=== PATIENT | female | born 1965 | race Caucasian/White ===

== ENCOUNTER → 2016-12-25 | Outpatient (CLI) | payer SELFPAY | LOC: OD 15:06 | PROVIDERS: ATTEND Internal Medicine | DX: R20.0 Anesthesia of skin (principal) | CPT/HCPCS: 36415; 82607; 83036 ==

== ENCOUNTER 2018-05-21 08:40 | Emergency (ER) | payer SELFPAY ==
--- NOTE | 2018-05-21 10:01 | ER Document Report ---
ED ENT - General Mode of Arrival: Ambulatory Information source: Patient TRAVEL OUTSIDE OF THE [place] IN LAST 30 DAYS: No - General Chief Complaint: Nose Bleed Stated Complaint: NOSE BLEED Time Seen by Provider: 05/21/18 09:53 Notes: 52-year-old female who presents to the emergency department today with complaints of a nosebleed that began at 0730 this morning. EMS administered afrin nose spray and using that along with pressure, they were able to control the bleeding for a brief time. Patient states she does not take blood thinners routinely however she did take 2 full strength aspirin within the last 24 hours. Patient states she used to be on hypertensive medications however she stopped taking them about a year ago. Patient denies any trauma to the nose. ( MARISOL CADENA) - Related Data Allergies/Adverse Reactions: nickel Allergy (Severe, Verified 08/07/16 09:46) RASH amoxicillin [Amoxicillin] Allergy (Verified 08/01/16 10:14) Hives, Wheezing meperidine HCl [From Demerol] Allergy (Verified 08/01/16 10:14) Hives Penicillins Allergy (Verified 08/01/16 10:14) Hives, Wheezing Sulfa (Sulfonamide Antibiotics) Allergy (Verified 08/01/16 10:14) Hives theophylline [Theophylline] Allergy (Verified 08/01/16 10:14) "raised BP really high, heart pounding" ibuprofen [From Motrin] Adverse Reaction (Verified 08/01/16 10:14) upset stomach Latex Allergy (Uncoded 08/01/16 10:14) Shortness of Breath Past Medical History - General Information source: Patient - Social History Smoking Status: Never Smoker Cigarette use (# per day): No Frequency of alcohol use: None Drug Abuse: None Lives with: Family Family History: Reviewed & Not Pertinent Patient has suicidal ideation: No Patient has homicidal ideation: No - Past Medical History Cardiac Medical History: Reports: Hx Hypertension Pulmonary Medical History: Reports: Hx Asthma - as a child Past Surgical History: Reports: Hx Cholecystectomy, Hx Gynecologic Surgery - uterine ablasion, Hx Tubal Ligation - Immunizations Hx Diphtheria, Pertussis, Tetanus Vaccination: Yes Review of Systems - Review of Systems Constitutional: No symptoms reported EENT: See HPI, Other - Nose bleed Cardiovascular: See HPI, Heart racing Respiratory: No symptoms reported Gastrointestinal: No symptoms reported Genitourinary: No symptoms reported Female Genitourinary: No symptoms reported Musculoskeletal: No symptoms reported Skin: No symptoms reported Hematologic/Lymphatic: No symptoms reported Neurological/Psychological: No symptoms reported -: Yes All other systems reviewed and negative Physical Exam - Vital signs Vitals: Temp Pulse Resp BP Pulse Ox 98.6 F 80 18 170/87 H 96 05/21/18 08:55 05/21/18 08:55 05/21/18 08:55 05/21/18 08:55 05/21/18 08:55 - Notes Notes: PHYSICAL EXAM GENERAL: Alert, interacts well. Appears somewhat uncomfortable secondary to nose bleed. HEAD: Normocephalic, atraumatic. EYES: Pupils equal, round, and reactive to light. Extraocular movements intact. ENT: Oral mucosa moist, tongue midline. Moderate amount of blood from bilateral nares R>L, left appears to be overflow. Large clot from the right nare when blowing nose. Some blood in posterior oropharynx. No arterial spurting. NECK: Full range of motion. Supple. Trachea midline. LUNGS: Clear to auscultation bilaterally, no wheezes, rales, or rhonchi. No respiratory distress. HEART: Regular rate and rhythm. No murmurs, gallops, or rubs. ABDOMEN: Soft, non-tender. Non-distended. Bowel sounds present in all 4 quadrants. No guarding, rigidity, or rebound. EXTREMITIES: Moves all 4 extremities spontaneously. No edema, radial and dorsalis pedis pulses 2/4 bilaterally. No cyanosis. NEUROLOGICAL: Alert and oriented x3. Normal speech. PSYCH: Normal affect, normal mood. SKIN: Warm, dry, normal turgor. No rashes or lesions noted. (MARISOL CADENA) Course - Re-evaluation Re-evalutation: 05/21/18 13:04 Patient noted to have active bleeding even after blowing her nose, spray more Afrin and holding pressure for at least 15 minutes. At this point we then had her blow her nose I inspected her nostrils and could not find any specific area amenable to cauterization, she then had tranexamic acid atomized up both nostrils approximately 1.5 mL's per nostril, pressure was held for 15 minutes and patient has been without any bleeding for an hour and a half at this point. Patient did complain of dizziness and felt like her sugar was getting low so we checked it it was 144. Patient said she also felt like her heart was racing , EKG was checked and showed sinus tachycardia at rate of 106, no evidence of atrial fibrillation. Patient is going to be discharged to home, she is going to be prescribed low-dose metoprolol for her high blood pressure and her slightly elevated heart rate. Patient is asked to follow-up with regional agronomist for her tachycardia and hypertension. Instructed not to blow her nose, pick her nose or put anything up her nose. Use a humidifier. To stop using decongestants. (RENUKA BARRETT) - Vital Signs Vital signs: Temp Pulse Resp BP Pulse Ox 98.4 F 118 H 18 183/94 H 96 05/21/18 13:19 05/21/18 13:19 05/21/18 13:19 05/21/18 13:19 05/21/18 13:19 - Laboratory Laboratory results interpreted by me: 05/21/18 11:15 POC Glucose 144 H - EKG Interpretation by Me Additional EKG results interpreted by me: 05/21/18 13:06 EKG shows sinus tachycardia at a rate of 106, left axis deviation, normal intervals, no ST segment elevations or depressions, no T wave inversions, poor R wave progression per my interpretation. (RENUKA BARRETT) Discharge - Discharge Clinical Impression: Acute anterior epistaxis, Noncompliance w/medication treatment due to intermit use of medication Hypertension Qualifiers: Hypertension type: unspecified Qualified Code(s): I10 - Essential (primary) hypertension Condition: Stable Disposition: HOME, SELF-CARE Additional Instructions: Nosebleed Instructions There is a significant chance of re-bleeding following a nosebleed. Proper care makes this less likely. Do not touch the nose for 24 hours. Do not blow the nose forcefully for one week. After 24 hours, gently apply Vaseline ointment to both nostrils with the tip of a finger, three times a day, for one week. It's normal to have a bloody mucous discharge for a few days. If active bleeding recurs, blow all the blood from the nose, then sit quietly and pinch the nose as firmly as possible for 10 minutes. If this does not stop the bleeding, return for further care. If packing was left in the nose and it starts to come out of the nostril, either tuck it back in or cut it off. Don't pull it out. Return for recheck and removal of the packing when instructed. Persons with frequent nosebleeds should avoid aspirin (unless prescribed for another reason). Humidity in the bedroom, and petroleum jelly applied to the nostrils at night may help. Please make an appointment to follow-up with Dr. Avalos as an outpatient, Dr. Gomez is a regional agronomist who can further investigate your slightly elevated heart rate. He may wish to consider putting on a Holter monitor. I prescribed metoprolol 25 mg twice a day. You will tolerate it better if he start with 12.5 mg twice a day, you may cut these pills in half. If after week this is not making you weak or dizzy may increase to 25 mg. Prescriptions: Metoprolol Tartrate 25 mg PO BID #60 tablet Referrals: LALITA RIVAS NP [Primary Care Provider] - Follow up as needed NATALY AVALOS MD [ACTIVE STAFF] - Follow up in 3-5 days Scribe Attestation: 05/21/18 16:00 I personally performed the services described in the documentation, reviewed and edited the documentation which was dictated to the scribe in my presence, and it accurately records my words and actions. (RENUKA BARRETT) Scribe Documentation - Scribe Written by Patric:: Patric Almonte, 05/21/2018 [id number] acting as scribe for :: Kiya
[2018-05-21] MEDS ORDERED: TRANEXAMIC ACID INJ/PF 1,000 MG/10 ML SDV IV ONE (10:07)
--- NOTE | 2018-05-21 12:27 | EKG REPORT ---
SEVERITY:- ABNORMAL ECG - SINUS TACHYCARDIA CONSIDER LEFT VENTRICULAR HYPERTROPHY : Confirmed by: Emily Eckert 21-May-2018 12:26:07
[2018-05-21 13:20] VITALS: BP 183/94
== END 2018-05-21 13:25 | disposition home or self-care (01) ==
LOC: ER 08:40
DX: R04.0 Epistaxis (principal); I10 Essential (primary) hypertension; Z91.14 Patient's other noncompliance with medication regimen; Z88.0 Allergy status to penicillin; Z88.2 Allergy status to sulfonamides; Z91.040 Latex allergy status; Z90.49 Acquired absence of other specified parts of digestive tract; Z98.51 Tubal ligation status
CPT/HCPCS: 93005; 99284; 82962; 93010; J3490

== ENCOUNTER → 2019-09-18 | Outpatient (CLI) | payer SELFPAY ==
[2019-09-18 12:15] LABS: ABSOLUTE LYMPHOCYTES (AUTO) 1.5 10^3/uL (0.5-4.7); ABSOLUTE MONOCYTES (AUTO) 0.4 10^3/uL (0.1-1.4); ABSOLUTE NEUT (AUTO) 5.3 10^3/uL (1.7-8.2); BASOPHILS % (AUTO) 0.6 % (0-2); EOSINOPHILS % (AUTO) 0.4 % (0-6); HEMATOCRIT 46.7 % (36.0-47.0); HEMOGLOBIN 15.9 g/dL (12.0-15.5); LYMPHOCYTES % (AUTO) 20.9 % (13-45); MEAN CORPUSCULAR HEMOGLOBIN 28.8 pg (27.0-33.4); MEAN CORPUSCULAR HGB CONC 34.1 g/dL (32.0-36.0); MEAN CORPUSCULAR VOLUME 85 fl (80-97); MONOCYTES % (AUTO) 5.2 % (3-13); PLATELET COUNT 260 10^3/uL (150-450); RED BLOOD COUNT 5.51 10^6/uL (3.72-5.28); RED CELL DISTRIBUTION WIDTH 13.9 % (11.5-14.0); SEGMENTED NEUTROPHILS % (AUTO) 72.9 % (42-78); TOTAL CELLS COUNTED % (AUTO) 100 %; WHITE BLOOD COUNT 7.3 10^3/uL (4.0-10.5)
[2019-09-18 12:41] LABS: ALBUMIN 4.2 g/dL (3.5-5.0); ALKALINE PHOSPHATASE 94 U/L (38-126); ANION GAP 9 (5-19); ASPARTATE AMINO TRANSFERASE 26 U/L (14-36); BILIRUBIN,DIRECT 0.2 mg/dL (0.0-0.4); BILIRUBIN,TOTAL 0.7 mg/dL (0.2-1.3); BLOOD UREA NITROGEN 13 mg/dL (7-20); CALCIUM 9.5 mg/dL (8.4-10.2); CARBON DIOXIDE 31 mmol/L (22-30); CHLORIDE 102 mmol/L (98-107); GLUCOSE 100 mg/dL (75-110); POTASSIUM 4.2 mmol/L (3.6-5.0); TOTAL PROTEIN 7.4 g/dL (6.3-8.2); TRIGLYCERIDES 143 mg/dL (<150)
[2019-09-18 12:53] LABS: DIRECT LDL 102 mg/dL (<100)
== END ==
LOC: OD 11:34
PROVIDERS: ATTEND Internal Medicine Cardiovascular Disease
DX: I10 Essential (primary) hypertension (principal); R00.2 Palpitations; N05.9 Unspecified nephritic syndrome with unspecified morphologic changes
CPT/HCPCS: 36415; 80053; 80061; 84443; 85025